=== PATIENT | female | born 1970 | race Caucasian/White ===

== ENCOUNTER 2017-07-06 21:47 | Emergency (ER) | payer OTHER ==
[2017-07-06 21:59] VITALS: BMI 29.1
[2017-07-07] MEDS ORDERED: ACETAMINOPHEN 325 MG TABLET (FP) PO ONE (00:17)
[2017-07-07] MEDS ORDERED: ACETAMINOPHEN 500 MG TABLET (FP) PO ONE (00:17)
--- NOTE | 2017-07-07 00:21 | PDOC ---
History of Present Illness <StarJalynson You - Last Filed: 07/07/17 00:25> - General History Source: Patient Exam Limitations: No Limitations - History of Present Illness Initial Comments: 07/07/17 00:40 Patient is a 46 year old female with pmhx of hypothyroid who presents to the ED with parietal headache and hypertension. Patient notes that she developed a parietal headache shortly after dinner and presented to [facility] to have her BP checked and it was high and she was prompted to present to the ED for further evaluation. While in the ED her BP is 165/99 deviated from her baseline 130/90. She denies taking anything for the headache but notes that it has mildly subsided. Patient reports increased SOB while walking up the stairs. She notes that her menstrual period is regular. PMD - Dr. Nat JAIME - non smoker, no alcohol use, no IVDU <Annamarie Munoz - Last Filed: 07/07/17 00:42> - General Chief Complaint: Blood Pressure Problem Stated Complaint: BLOOD PRESSURE PROBLEM Time Seen by Provider: 07/06/17 23:11 Past History - Past Medical History Seizures: Yes - Psycho/Social/Smoking Cessation Hx Suicidal Ideation: No Smoking History: Never smoked Have you smoked in the past 12 months: No Information on smoking cessation initiated: No Hx Alcohol Use: No Drug/Substance Use Hx: No <StarJalynson You - Last Filed: 07/07/17 00:25> Review of Systems - Review of Systems Able to Perform ROS?: Yes Comments:: 07/07/17 00:41 CONSTITUTIONAL: Absent: fever, chills, diaphoresis, generalized weakness, malaise, loss of appetite HEENT: Absent: rhinorrhea, nasal congestion, throat pain, throat swelling, difficulty swallowing, mouth swelling, ear pain, eye pain, visual Changes CARDIOVASCULAR: Absent: chest pain, syncope, palpitations, irregular heart rate, lightheadedness , peripheral edema RESPIRATORY: Absent: cough, shortness of breath, dyspnea with exertion, orthopnea, wheezing, stridor, hemoptysis GASTROINTESTINAL: Absent: abdominal pain, abdominal distension, nausea, vomiting, diarrhea, constipation, melena, hematochezia GENITOURINARY: Absent: dysuria, frequency, urgency, hesitancy, hematuria, flank pain, genital pain MUSCULOSKELETAL: Absent: myalgia, arthralgia, joint swelling SKIN: Absent: rash, itching, pallor HEMATOLOGIC/IMMUNOLOGIC: Absent: easy bleeding, easy bruising, lymphadenopathy, frequent infections ENDOCRINE: Absent: unexplained weight gain, unexplained weight loss, heat intolerance, cold intolerance NEUROLOGIC: Present: headache Absent: focal weakness or paresthesias, dizziness, unsteady gait, seizure, mental status changes, bladder or bowel incontinence PSYCHIATRIC: Absent: anxiety, depression, suicidal or homicidal ideation, hallucinations. <Huber Munozyna - Last Filed: 07/07/17 00:42> *Physical Exam - Vital Signs Last Vital Signs Temp Pulse Resp BP Pulse Ox 77 19 151/98 98 07/06/17 21:57 07/06/17 21:57 07/06/17 21:57 07/06/17 21:57 <StarJalyn You - Last Filed: 07/07/17 00:25> - Vital Signs Last Vital Signs Temp Pulse Resp BP Pulse Ox 77 19 164/99 98 07/06/17 21:57 07/06/17 21:57 07/07/17 00:37 07/06/17 21:57 - Physical Exam Comments: 07/07/17 00:42 GENERAL: Well developed, well nourished. Awake and alert. No acute distress. HEENT: Normocephalic, atraumatic. PERRLA, EOMI. No conjunctival pallor. Sclera are non- icteric. Moist mucous membranes. Oropharynx is clear. NECK: Supple. Full ROM. No JVD. Carotid pulses 2+ and symmetric, without bruits. No thyromegaly. No lymphadenopathy. CARDIOVASCULAR: Regular rate and rhythm. No murmurs, rubs, or gallops. Distal pulses are 2+ and symmetric. PULMONARY: No evidence of respiratory distress. Lungs clear to auscultation bilaterally. No wheezing, rales or rhonchi. ABDOMINAL: Soft. Non-tender. Non-distended. No rebound or guarding. No organomegaly. Normoactive bowel sounds. MUSCULOSKELETAL Normal range of motion at all joints. No bony deformities or tenderness. No CVA tenderness. EXTREMITIES: No cyanosis. No clubbing. No edema. No calf tenderness. SKIN: Warm and dry. Normal capillary refill. No rashes. No jaundice. NEUROLOGICAL: Alert, awake, appropriate. Cranial nerves 2-12 intact. Gait is normal without ataxia. PSYCHIATRIC: Cooperative. Good eye contact. Appropriate mood and affect. <Annamarie Munoz - Last Filed: 07/07/17 00:42> Medical Decision Making - Medical Decision Making 07/07/17 00:25 46-year-old female. Past medical history of hypothyroidism developed a left- sided parietal headache after eating tuna fish this evening. She then went to [facility] and her blood pressure checked and it was elevated. On exam, she has no appreciable ataxia, alert and oriented 3. She did not have facial droop, facial numbness, confusion, slurred speech or extremity weakness Primary doctor is Dr. Rm. <Jalyn Graves - Last Filed: 07/07/17 00:25> *DC/Admit/Observation/Transfer - Attestations Scribe Attestion: 07/07/17 00:42 Documentation prepared by GISSELLE Sanchez, acting as certified ophthalmic medical technician for Jalyn Graves MD. <Annamarie Munoz - Last Filed: 07/07/17 00:42>
[2017-07-07] MEDS ORDERED: ACETAMINOPHEN 325 MG TABLET (FP) ONE ×2 (00:36→00:39)
[2017-07-07 00:43] LABS: URINE APPEARANCE SLCLOUDY; URINE BILIRUBIN NEGATIVE (NEGATIVE); URINE BLOOD NEGATIVE (NEGATIVE); URINE COLOR YELLOW; URINE GLUCOSE (UA) NEGATIVE (NEGATIVE); URINE KETONE TRACE (NEGATIVE); URINE LEUK ESTERASE TRACE (NEGATIVE); URINE NITRITE NEGATIVE (NEGATIVE); URINE PROTEIN NEGATIVE (NEGATIVE); URINE UROBILINOGEN NEGATIVE mg/dL (0.2-1.0)
[2017-07-07 00:52] LABS: URINE BACTERIA RARE /hpf (NONE SEEN); URINE MUCUS RARE; URINE RBC 1 /hpf (0-3); URINE WBC 23 /hpf (3-5)
[2017-07-07 00:57] LABS: BASOPHIL 0.5 % (0-2.0); EOSINOPHIL 0.3 % (0-4.5); MCH 32.1 pg (25.7-33.7); MCHC 33.7 g/dl (32.0-36.0); MEAN CELL VOLUME 95.2 fl (80-96); NEUTROPHILS 82.7 % (42.8-82.8); PLATELET COUNT 267 K/MM3 (134-434); RDW 14.3 % (11.6-15.6); WHITE BLOOD COUNT 7.4 K/mm3 (4.0-10.0)
[2017-07-07 01:08] LABS: INR 1.11 (0.82-1.09); PROTHROMBIN TIME (PATIENT) 12.2 SEC (9.98-11.88)
[2017-07-07 01:20] LABS: ALBUMIN 3.9 g/dl (3.4-5.0); ANION GAP 8 (8-16); CALCIUM 8.6 mg/dL (8.5-10.1); CO2 27 mmol/L (21-32); CREATININE 0.7 mg/dL (0.55-1.02); GLUCOSE,RANDOM 107 mg/dL (74-106); SGOT/AST 17 U/L (15-37); SGPT/ALT 49 U/L (12-78)
[2017-07-07 01:22] LABS: ALK PHOS 98 U/L (45-117); BILIRUBIN,TOTAL 0.6 mg/dL (0.2-1.0); TOT PROT 7.7 g/dl (6.4-8.2)
[2017-07-07 04:29] VITALS: BP 179/100; PULSE 69
[2017-07-07] MEDS ORDERED: SULFAMETHOXAZOLE/TRIMETHOPRIM 800MG/160MG D.S. TABLET PO ONE (04:40)
--- NOTE | 2017-07-07 04:55 | PDOC ---
*Physical Exam - Vital Signs Last Vital Signs Temp Pulse Resp BP Pulse Ox 69 18 179/100 99 07/07/17 03:55 07/07/17 03:55 07/07/17 03:55 07/07/17 03:55 ED Treatment Course - LABORATORY CBC & Chemistry Diagram: 07/07/17 00:33 07/07/17 00:33 - ADDITIONAL ORDERS Additional order review: Laboratory Results 07/07/17 07/07/17 07/07/17 00:33 00:33 00:33 INR Sodium 139 Potassium 3.8 Chloride 104 Carbon Dioxide 27 Anion Gap 8 BUN 12 D Creatinine 0.7 Creat Clearance w eGFR > 60 Random Glucose 107 H D Calcium 8.6 Total Bilirubin 0.6 AST 17 D ALT 49 Alkaline Phosphatase 98 Total Protein 7.7 Albumin 3.9 Urine Color Yellow Urine Appearance Slcloudy Urine pH 6.0 Urine Protein Negative Urine Glucose (UA) Negative Urine Ketones Trace H Urine Blood Negative Urine Nitrite Negative Urine Bilirubin Negative Urine Urobilinogen Negative Ur Leukocyte Esterase Trace Urine RBC 1 Urine WBC 23 Ur Epithelial Cells Moderate Urine Bacteria Rare Urine Mucus Rare Urine HCG, Qual Negative 07/07/17 00:33 INR 1.11 Sodium Potassium Chloride Carbon Dioxide Anion Gap BUN Creatinine Creat Clearance w eGFR Random Glucose Calcium Total Bilirubin AST ALT Alkaline Phosphatase Total Protein Albumin Urine Color Urine Appearance Urine pH Urine Protein Urine Glucose (UA) Urine Ketones Urine Blood Urine Nitrite Urine Bilirubin Urine Urobilinogen Ur Leukocyte Esterase Urine RBC Urine WBC Ur Epithelial Cells Urine Bacteria Urine Mucus Urine HCG, Qual 07/07/17 00:33 RBC 4.22 MCV 95.2 MCHC 33.7 RDW 14.3 MPV 8.0 Neutrophils % 82.7 D Lymphocytes % 13.3 D Monocytes % 3.2 L Eosinophils % 0.3 D Basophils % 0.5 - Medications Given in the ED: ED Medications Discontinued Medications Generic Name Dose Route Start Last Admin Trade Name Freq PRN Reason Stop Dose Admin Acetaminophen 975 mg 07/07/17 00:17 07/07/17 00:39 Tylenol - PO 07/07/17 00:18 975 mg ONCE ONE Administration Acetaminophen 975 mg 07/07/17 00:17 07/07/17 01:23 Tylenol - PO 07/07/17 00:18 Not Given ONCE ONE *DC/Admit/Observation/Transfer Diagnosis at time of Disposition: Left against medical advice, Urinary tract infection Hypertension Qualifiers: Hypertension type: unspecified Qualified Code(s): I10 - Essential (primary) hypertension - Discharge Dispostion Disposition: AGAINST MEDICAL ADVICE Condition at time of disposition: Stable Admit: No - Prescriptions Prescriptions: Sulfamethoxazole/Trimethoprim [Bactrim Ds -] 1 tab PO BID #14 tablet - Referrals Referrals: Matthew Johns MD [Primary Care Provider] - - Patient Instructions Printed Discharge Instructions: DI for High Blood Pressure, DI for Urinary Tract Infection (UTI) Additional Instructions: Please follow up with your doctor immediately. By signing out against medical advise you are taking the risk your conditions. - Post Discharge Activity
== END 2017-07-07 05:13 | disposition left against medical advice (07) ==
LOC: JER 21:47
DX: I10 Essential (primary) hypertension (principal); N39.0 Urinary tract infection, site not specified; E03.9 Hypothyroidism, unspecified
CPT/HCPCS: 36415; 80053; 81003; 81015; 84703; 85025; 85610; 99283-25

== ENCOUNTER 2018-08-08 16:04 | Emergency (ER) | payer OTHER ==
--- NOTE | 2018-08-08 16:16 | PDOC ---
Rapid Medical Evaluation Time Seen by Provider: 08/08/18 16:14 Medical Evaluation: Allergies Allergy/AdvReac Type Severity Reaction Status Date / Time No Known Allergies Allergy Verified 07/07/17 00:39 08/08/18 16:14 I have performed a brief in-person evaluation of this patient. The patient presents with a chief complaint of: laceration to right hand from broken glass while washing dishes 1 hour ago. Complaining of pain at site, applied neosporin. Tetanus not up to date Pertinent physical exam findings are NAD unlabored breathing right 2nd knuckles with laceration I have ordered the following boostrix The patient will proceed to the Ed for further evaluation. Discharge Disposition - Referrals Referrals: Matthew Johns MD [Primary Care Provider] - - Patient Instructions - Post Discharge Activity
[2018-08-08] MEDS ORDERED: DIPHTH,PERTUSS(ACELL),TET 0.5 ML DISP.SYRIN IM ONE (16:18)
[2018-08-08 16:21] VITALS: PULSE 77; TEMP 98; BMI 28.9
--- NOTE | 2018-08-08 16:37 | PDOC ---
History of Present Illness - General Chief Complaint: Laceration Stated Complaint: LACERATION Time Seen by Provider: 08/08/18 16:14 History Source: Patient Exam Limitations: No Limitations - History of Present Illness Initial Comments: CHIEF COMPLAINT: 47 y/o female c/o laceration to right hand today. HISTORY OF PRESENT ILLNESS: The patient was cleaning dishes when a glass suddenly broke in her hand and caused a laceration on her right knuckle. She denies decreased ROM and numbness/tingling. The patient is not UTD on tetanus Vital signs on arrival are notable for BP of 187/96. REVIEW OF SYSTEMS: GENERAL/CONSTITUTIONAL: No fever/chills. MUSCULOSKELETAL: No joint or muscle swelling or pain. No neck or back pain. SKIN: +laceration to right knuckle. NEUROLOGIC: No headache, vertigo, loss of consciousness, or loss of sensation. PHYSICAL EXAM: GENERAL: The patient is awake, alert, and fully oriented, in no acute distress. EXTREMITIES: Normal range of motion, no edema. NEUROLOGICAL: Normal speech, normal gait. CN II-XII grossly intact. SKIN: 1.5cm laceration to dorsal base of right 2nd digit. Margins very well approximated. No active bleeding. Past History - Past Medical History Allergies/Adverse Reactions: Allergies Allergy/AdvReac Type Severity Reaction Status Date / Time No Known Allergies Allergy Verified 08/08/18 16:15 Home Medications: Ambulatory Orders NK [No Known Home Medication] 08/08/18 COPD: No Seizures: Yes Thyroid Disease: Yes - Suicide/Smoking/Psychosocial Hx Smoking History: Never smoked Have you smoked in the past 12 months: No Hx Alcohol Use: No Drug/Substance Use Hx: No Substance Use Type: None *Physical Exam - Vital Signs Last Vital Signs Temp Pulse Resp BP Pulse Ox 98.0 F 77 18 187/96 H 100 08/08/18 16:15 08/08/18 16:15 08/08/18 16:15 08/08/18 16:15 08/08/18 16:15 Procedures - Laceration/Wound Repair Right Dorsal Finger 2nd digit Wound Length: to 2.5 cm Wound Explored: clean Wound's Depth, Shape: superficial, linear Irrigated w/ Saline: Yes Betadine Prep: Yes Anesthesia: 1% Lidocaine Amount of Anesthetic (ccs): 3 Wound Debrided: minimal Wound Repaired With: Sutures Suture Size/Type: 4:0 Number of Sutures: 3 Sterile Dressing Applied: Yes Medical Decision Making - Medical Decision Making A/P: 47 y/o female with laceration to right hand. Plan is as follows: 1. Tetanus 2. Xray right hand to r/o FB 3. lac repair Xray right hand IMPRESSION: (wet read) No foreign body noted. Patient's blood pressure is very high. Recheck is 176/103. The patient denies HTN and also denies THORNTON and dizziness. Suspect it is possible elevated from injury and pain, but strongly encouraged her to f/u with Dr. Johns to have it rechecked. Also instructed her to return to the ER if she develops headache or any other alarming symptoms. Irrigated wound copiously. Performed lac repair without difficulty. Patient instructed to keep area dry for 24 hours, and return in 7-10 days for suture removal. The patient verbalizes understanding of all instructions, has no further questions and is awaiting discharge. *DC/Admit/Observation/Transfer Diagnosis at time of Disposition: Laceration, HTN (hypertension) - Discharge Dispostion Disposition: HOME Condition at time of disposition: Improved - Referrals Referrals: Matthew Johns MD [Primary Care Provider] - - Patient Instructions Printed Discharge Instructions: DI for Laceration Repair Additional Instructions: Discharge Instructions: -You had a tetanus shot today. You are now up to date for 10 years -Keep area dry for 24 hours -after 24 hours you may wash affected area with soap and water gently -Return to the ER in 7-10 days for suture removal -In the ER you had 2 high blood pressure readings (187/96 & 176/103). Please follow up with Dr. Johns to have this rechecked and return to the ER immediately with any worsening or concerning symptoms, especially headache - Post Discharge Activity Forms/Work/School Notes: Back to Work
[2018-08-08 17:30] VITALS: BP 176/103
== END 2018-08-08 17:38 | disposition home or self-care (01) ==
LOC: JERFT 16:04 → JER 16:04 → JERFT 17:38
PROC: 3E0234Z Introduction of Serum, Toxoid and Vaccine into Muscle, Percutaneous Approach (ICD-10-PCS; principal; 2018-08-08)
PROC: 0HQFXZZ Repair Right Hand Skin, External Approach (ICD-10-PCS; 2018-08-08)
DX: S61.411A Laceration without foreign body of right hand, initial encounter (principal); W25.XXXA Contact with sharp glass, initial encounter; Y93.G1 Activity, food preparation and clean up; Y92.030 Kitchen in apartment as the place of occurrence of the external cause; Y99.8 Other external cause status; I10 Essential (primary) hypertension
CPT/HCPCS: 12011; 73130-TC-RT-FY; 90471; 90715; 99281-25

== ENCOUNTER 2018-08-18 17:05 | Emergency (ER) | payer OTHER ==
--- NOTE | 2018-08-18 17:31 | PDOC ---
Rapid Medical Evaluation Time Seen by Provider: 08/18/18 17:28 Medical Evaluation: Allergies Allergy/AdvReac Type Severity Reaction Status Date / Time No Known Allergies Allergy Verified 08/08/18 16:15 08/18/18 17:28 Pt is a 47 y/o F who presents to the ED for suture removal to the R hand. Seen in our ED for repair 10 days ago Exam: simple interrupted sutures intact to R hand Orders: Nothing Pt to proceed to ED for further evaluation Discharge Disposition - Diagnosis Suture check - Referrals - Patient Instructions - Post Discharge Activity
[2018-08-18 17:33] VITALS: BP 167/94; PULSE 80; TEMP 98; BMI 29.1
--- NOTE | 2018-08-18 17:53 | PDOC ---
History of Present Illness - General Chief Complaint: Suture/Staple Removal(Here) Stated Complaint: STITCHES REMOVAL Time Seen by Provider: 08/18/18 17:28 History Source: Patient Exam Limitations: Clinical Condition - History of Present Illness Initial Comments: 08/18/18 15:06 Patient with no significant past medical history presented for suture removal status post presenting a ago with laceration to back of hand with a glass . denies drainage from wound site . denies redness or pain to wound sit. Timing/Duration: 1 week Past History - Past Medical History Allergies/Adverse Reactions: Allergies Allergy/AdvReac Type Severity Reaction Status Date / Time No Known Allergies Allergy Verified 08/18/18 17:28 Home Medications: Ambulatory Orders NK [No Known Home Medication] 08/08/18 COPD: No Seizures: Yes Thyroid Disease: Yes - Immunization History Immunization Up to Date: Yes - Suicide/Smoking/Psychosocial Hx Smoking History: Never smoked Have you smoked in the past 12 months: No Hx Alcohol Use: No Drug/Substance Use Hx: No Substance Use Type: None Review of Systems - Review of Systems Able to Perform ROS?: Yes Is the patient limited [place] proficient: No Constitutional: No: Chills, Fever, Weakness Respiratory: No: Symptoms reported Cardiac (ROS): No: Symptoms Reported ABD/GI: No: Symptoms Reported Musculoskeletal: No: Muscle Pain, Muscle Weakness Integumentary: Yes: Other (laceration to back of hand over base of right index finger) All Other Systems: Reviewed and Negative *Physical Exam - Vital Signs Last Vital Signs Temp Pulse Resp BP Pulse Ox 98.0 F 80 18 167/94 100 08/18/18 17:28 08/18/18 17:28 08/18/18 17:28 08/18/18 17:28 08/18/18 17:28 - Physical Exam Comments: 08/18/18 19:08 GENERAL: Well developed, well nourished. Awake and alert. No acute distress. CARDIOVASCULAR: Regular rate and rhythm. No murmurs, rubs, or gallops. Distal pulses are 2+ and symmetric. PULMONARY: No evidence of respiratory distress. Lungs clear to auscultation bilaterally. No wheezing, rales or rhonchi. ABDOMINAL: Soft. Non-tender. Non-distended. No rebound or guarding. No organomegaly. Normoactive bowel sounds. MUSCULOSKELETAL Normal range of motion at all joints. No bony deformities or tenderness. No CVA tenderness. EXTREMITIES: No cyanosis. No clubbing. No edema. No calf tenderness. SKIN: well healing 3cm linear laceration with [address] to base of posterior right index finger. erythema to wound site. no wound dehiscense. no evidence of wound infection.Warm and dry. NEUROLOGICAL: Alert, awake, appropriate. PSYCHIATRIC: Cooperative. Good eye contact. Appropriate mood and affect. General Appearance: Yes: Nourished, Appropriately Dressed. No: Apparent Distress Medical Decision Making - Medical Decision Making 08/18/18 17:51 Patient presented for suture removal status post presenting a ago with laceration to right index finger requiring suture placement. Exam shows well healing 3 cm laceration with [address] No evidence of wound infection. Sutures removal the without complication. Steri-Strips applied to wound. Patient educated on home wound care *DC/Admit/Observation/Transfer Diagnosis at time of Disposition: Suture check, Laceration, Visit for suture removal - Discharge Dispostion Disposition: HOME Condition at time of disposition: Stable Decision to Admit order: No - Referrals Referrals: Matthew Johns MD [Primary Care Provider] - - Patient Instructions Printed Discharge Instructions: DI for Suture Removal, DI for Surgical Site Infection - Post Discharge Activity
== END 2018-08-18 17:56 | disposition home or self-care (01) ==
LOC: JER 17:05
DX: Z48.817 Encounter for surgical aftercare following surgery on the skin and subcutaneous tissue (principal); Z48.02 Encounter for removal of sutures
CPT/HCPCS: 99281-25

== ENCOUNTER 2018-08-26 10:49 | Emergency (ER) | payer OTHER ==
[2018-08-26 10:57] VITALS: BP 160/80; PULSE 76; TEMP 98; BMI 29.1
--- NOTE | 2018-08-26 11:40 | PDOC ---
History of Present Illness - General Chief Complaint: Wound Stated Complaint: REDNESS TO AFFECTED AREA Time Seen by Provider: 08/26/18 11:19 History Source: Patient Exam Limitations: No Limitations - History of Present Illness Initial Comments: 08/26/18 12:10 Chin of persistent pain to her right index finger. Had laceration sustained approximately 3 weeks ago, and has persistent pain that radiates up radial aspect of arm. Patient denies fever, redness, purulent drainage or dehiscence. Range of motion is intact but states has some intermittent "stinging" pain. States x-ray at the time did not reveal fractures, bone and eruption, or foreign body. Timing/Duration: constant, intermittent Severity: mild, moderate Associated Symptoms: reports: denies symptoms Past History - Travel Traveled outside of the country in the last 30 days: No Close contact w/someone who was outside of country & ill: No - Past Medical History Allergies/Adverse Reactions: Allergies Allergy/AdvReac Type Severity Reaction Status Date / Time No Known Allergies Allergy Verified 08/26/18 10:54 Home Medications: Ambulatory Orders Levothyroxine Sodium [Synthroid] 88 mcg PO DAILY 08/26/18 COPD: No Seizures: Yes Thyroid Disease: Yes - Immunization History Immunization Up to Date: Yes - Suicide/Smoking/Psychosocial Hx Smoking History: Never smoked Have you smoked in the past 12 months: No Hx Alcohol Use: No Drug/Substance Use Hx: No Substance Use Type: None Review of Systems - Review of Systems Able to Perform ROS?: Yes Is the patient limited [place] proficient: Yes Constitutional: Yes: See HPI. No: Symptoms Reported, Fever, Malaise HEENTM: No: Symptoms Reported Respiratory: No: Symptoms reported Musculoskeletal: Yes: Symptoms Reported, Joint Pain, Joint Swelling Neurological: Yes: Symptoms reported, Tingling All Other Systems: Reviewed and Negative *Physical Exam - Vital Signs Last Vital Signs Temp Pulse Resp BP Pulse Ox 98 F 76 16 160/80 98 08/26/18 10:55 08/26/18 10:55 08/26/18 10:55 08/26/18 10:55 08/26/18 10:55 - Physical Exam General Appearance: Yes: Nourished, Appropriately Dressed HEENT: positive: TERI, Normal ENT Inspection, TMs Normal, Pharynx Normal Neck: negative: Tender Extremity: positive: Normal Capillary Refill, Normal Inspection, Normal Range of Motion. negative: Tender Integumentary: positive: Normal Color, Other (well-healed suture line to MCP of right hand second digit dorsum. Has full range of motion to index finger with strong flexion and extension against resistance. Neurovascular intact distal but states has some intermittent tingling with severe flexion.) Neurologic: positive: quilt stuffer II-XII NML intact, Fully Oriented, Alert, Normal Mood/ Affect, Normal Response, Motor Strength 5/5 Medical Decision Making - Medical Decision Making 08/26/18 12:13 Possible neuropathy status post deep laceration healing on dorsum of right hand. Instructed to splints as needed for strenuous activity, and follow up with hand specialist if symptoms persist. Finger/aluminum/foam splint placed *DC/Admit/Observation/Transfer Diagnosis at time of Disposition: Neuropathy - Discharge Dispostion Disposition: HOME Condition at time of disposition: Stable Decision to Admit order: No - Referrals Referrals: Matthew Johns MD [Primary Care Provider] - Adrien Klein MD [Staff Physician] - - Patient Instructions Printed Discharge Instructions: DI for Peripheral Neuropathy Additional Instructions: Rest, Wear splint if possible to avoid irritating area May use ibuprofen for pain relief Follow-up with orthopedist or hand specialist if symptoms worsen - Post Discharge Activity Forms/Work/School Notes: Back to Work
== END 2018-08-26 12:16 | disposition home or self-care (01) ==
LOC: JERFT 10:49
DX: G62.9 Polyneuropathy, unspecified (principal); E07.9 Disorder of thyroid, unspecified; R56.9 Unspecified convulsions
CPT/HCPCS: 99281-25

== ENCOUNTER 2020-10-07 13:09 | Emergency (ER) | payer OTHER ==
[2020-10-07 13:20] VITALS: BP 168/74; PULSE 82; BMI 29.6
[2020-10-07] MEDS ORDERED: DIPHTH,PERTUSS(ACELL),TET 0.5 ML DISP.SYRIN IM ONE ×2 (13:57→14:07)
[2020-10-07] MEDS ORDERED: AMOX TR/POT CLAV 875MG/125MG TABLETS (FP) PO ONE (13:57)
[2020-10-07] MEDS ORDERED: AMOX TR/POT CLAV 875MG/125MG TABLETS (FP) ONE (14:06)
== END 2020-10-07 14:25 | disposition home or self-care (01) ==
LOC: JERFT 13:09
PROC: 3E0234Z Introduction of Serum, Toxoid and Vaccine into Muscle, Percutaneous Approach (ICD-10-PCS; principal; 2020-10-07)
DX: S51.851A Open bite of right forearm, initial encounter (principal); W55.01XA Bitten by cat, initial encounter
CPT/HCPCS: 90715; 99284-25

== ENCOUNTER 2021-10-08 16:50 | Emergency (ER) | payer OTHER ==
[2021-10-08 17:23] VITALS: BP 123/72; BMI 28.8
[2021-10-08] MEDS ORDERED: CASIRIVIMAB/IMDEVIMAB 10 ML in SODIUM CHLORIDE 100 ML IVPB ONE (17:30)
[2021-10-08] MEDS ORDERED: ACETAMINOPHEN 500 MG TABLET (FP) PO ONE (17:31)
[2021-10-08 20:45] VITALS: PULSE 92; TEMP 99
== END 2021-10-08 20:45 | disposition home or self-care (01) ==
LOC: JER 16:50 → JCOVINFU 16:50
PROC: 3E033GC Introduction of Other Therapeutic Substance into Peripheral Vein, Percutaneous Approach (ICD-10-PCS; principal; 2021-10-08)
DX: U07.1 COVID-19 (principal)
CPT/HCPCS: 99284-25; Q0240

== ENCOUNTER 2024-06-14 12:48 | Emergency (ER) | payer OTHER ==
[2024-06-14 12:55] VITALS: BP 133/84; PULSE 83; RESP 18; TEMP 98.8; BMI 26.9
[2024-06-14] MEDS ORDERED: ACETAMINOPHEN INJECTION 100 ML IVPB ONE (14:36)
[2024-06-14] MEDS ORDERED: MAG HYDROX/AL HYDROX/SIMETH 30 ML UNIT-DOSE CUP ONE (14:36)
[2024-06-14] MEDS ORDERED: FAMOTIDINE 20 MG/50 ML IVPB 20 MG/50 ML MG IVPB ONE (14:36)
[2024-06-14 14:39] LABS: BASO % 0.5 % (0-2.0); EOS % 1.9 % (0-4.5); HEMATOCRIT 40.6 % (32.4-45.2); HEMOGLOBIN 13.8 GM/dL (10.7-15.3); LYMPH % 21.7 % (8-40); MEAN CELL VOLUME 94.2 fl (80-96); MEAN PLT VOLUME 7.6 fl (7.5-11.1); MONO % 5.6 % (3.8-10.2); NEUT % 70.3 % (42.8-82.8); PLATELET COUNT 232 10^3/uL (134-434); RDW 13.4 % (11.6-15.6); WHITE BLOOD COUNT 6.1 K/mm3 (4.0-10.0)
[2024-06-14 14:41] LABS: PH,URINE 6.5 (5.0-8.0); URINE APPEARANCE CLEAR; URINE BILIRUBIN NEGATIVE (NEGATIVE); URINE COLOR YELLOW; URINE GLUCOSE (UA) NEGATIVE (NEGATIVE); URINE KETONE NEGATIVE (NEGATIVE); URINE LEUK ESTERASE 2+ (NEGATIVE); URINE NITRITE NEGATIVE (NEGATIVE); URINE PROTEIN NEGATIVE (NEGATIVE); URINE UROBILINOGEN 0.2 mg/dL (0.2-1.0)
[2024-06-14] MEDS: SODIUM CHLORIDE 1,000 ML IV STA (14:45)
[2024-06-14] MEDS: ACETAMINOPHEN 1000 MG/100 ML BAG IVPB ONE (14:45)
[2024-06-14] MEDS: MAG HYDROX/AL HYDROX/SIMETH 30 ML UNIT-DOSE CUP PO ONE (14:45)
[2024-06-14] MEDS: FAMOTIDINE 20 MG/50 ML IVPB 20 MG/50 ML MG IVPB ONE (14:45)
[2024-06-14 15:04] LABS: EPI CELLS 10.6 /uL (0-25.1); HYALINE CASTS 0.29 /uL (0-3.1); URINE RBC 3.5 /uL (0-23.9); URINE WBC 30.5 /uL (0-25.8)
[2024-06-14 15:06] LABS: POTASSIUM 3.7 mmol/L (3.5-5.1)
[2024-06-14 15:08] LABS: CALCIUM 9.4 mg/dL (8.5-10.1)
[2024-06-14 15:09] LABS: ALBUMIN 4.2 g/dl (3.4-5.0); BLOOD UREA NITROGEN 14.2 mg/dL (7-18)
[2024-06-14 15:12] LABS: CREATININE 0.7 mg/dL (0.55-1.3)
[2024-06-14 15:13] LABS: BILIRUBIN,TOTAL 0.7 mg/dL (0.2-1)
[2024-06-14] MEDS ORDERED: SULFAMETHOXAZOLE/TRIMETHOPRIM 800MG/160MG D.S. TABLET ONE (16:12)
[2024-06-14] MEDS: SULFAMETHOXAZOLE/TRIMETHOPRIM 800MG/160MG D.S. TABLET PO ONE (16:16)
== END 2024-06-14 16:29 | disposition home or self-care (01) ==
LOC: JER 12:48
PROC: 3E033GC Introduction of Other Therapeutic Substance into Peripheral Vein, Percutaneous Approach (ICD-10-PCS; principal; 2024-06-14)
DX: R10.9 Unspecified abdominal pain (principal); K59.00 Constipation, unspecified; R14.0 Abdominal distension (gaseous); N39.0 Urinary tract infection, site not specified
CPT/HCPCS: 36415; 80053; 81003; 83605; 83690; 85025; 87086; 99284-25; J0131

== ENCOUNTER 2024-07-21 18:29 | Emergency (ER) | payer OTHER ==
[2024-07-21 18:38] VITALS: BP 115/73; PULSE 91; RESP 18; TEMP 98.6; BMI 25.4
== END 2024-07-21 23:12 | disposition home or self-care (01) ==
LOC: JER 18:29
DX: R31.9 Hematuria, unspecified (principal); R33.9 Retention of urine, unspecified
CPT/HCPCS: 99283-25

== ENCOUNTER 2024-07-31 22:55 | Emergency (ER) | payer OTHER ==
[2024-07-31 23:02] VITALS: BP 112/74; PULSE 82; RESP 18; TEMP 98.2; BMI 25.5
== END 2024-08-01 00:04 | disposition home or self-care (01) ==
LOC: JER 22:55
DX: Z46.6 Encounter for fitting and adjustment of urinary device (principal)
CPT/HCPCS: 99282-25